=== PATIENT | female | born 1985 | race African-American/Black ===

== ENCOUNTER 2019-03-22 06:34 | Outpatient (CLI) | payer BC ==
--- NOTE | 2019-03-22 10:50 | ULT ---
RIGHT AXILLARY ULTRASOUND: Date: 03/22/19 HISTORY: Newly diagnosed right breast cancer. Evaluation for axillary adenopathy. FINDINGS: Real-time imaging of the right axilla shows no suspicious lymph nodes or other abnormalities. IMPRESSION: Unremarkable ultrasound of the right axilla. POS: DAMON
== END 2019-03-22 06:35 | disposition home or self-care (01) ==
LOC: BICULT 06:34
PROVIDERS: ATTEND Internal Medicine Hematology & Oncology
DX: C50.211 Malignant neoplasm of upper-inner quadrant of right female breast (principal)
CPT/HCPCS: 76999

== ENCOUNTER 2019-03-23 08:36 | Day surgery (SDC) | payer BC ==
[2019-03-22 12:45] VITALS: BMI 27.8
[2019-03-23] MEDS ORDERED: Lidocaine 2% PF 5 ML VIAL ONE (10:53)
[2019-03-23] MEDS ORDERED: Bupivacaine/Epinephrine 0.25% 30 ML VIAL ONE (10:53)
[2019-03-23] MEDS ORDERED: Fentanyl 100 MCG/2 ML VIAL ONE (11:00)
[2019-03-23] MEDS ORDERED: Ondansetron PF 4 MG/2 ML Vial ONE (13:04)
[2019-03-23] MEDS ORDERED: PROPOFOL 200 MG/20 ML VIAL ONE (13:04)
[2019-03-23] MEDS ORDERED: Lidocaine 1% PF 5 ML VIAL ONE (13:04)
[2019-03-23] MEDS ORDERED: Dexamethasone 20 MG/5 ML VIAL ONE (13:04)
--- NOTE | 2019-03-23 14:53 | RAD ---
CHEST 1 VIEW: Date: 03/23/19 INDICATION: MediPort placement. FINDINGS: There is a left IJ chest wall port in place. No pneumothorax is evident. Heart size is normal. No acu te osseous abnormality is evident. IMPRESSION: Left IJ chest wall port. Tip of catheter projects in region of cavoatrial junction. No pneumothorax e vident. Findings called to Sheela PACU nurse caring for this patient, at 1256 hours on 03/23/19. CODE CR. POS: CET
--- NOTE | 2019-03-23 20:51 | OP ---
DATE OF PROCEDURE: 03/23/2019 PREOPERATIVE DIAGNOSIS: Right breast cancer. POSTOPERATIVE DIAGNOSIS: Right breast cancer. PROCEDURE PERFORMED: Tunneled central line subcutaneous port (MediPort CT injectable, low-profile). ANESTHESIA: General. ESTIMATED BLOOD LOSS: Minimal. COMPLICATIONS: None. SPECIMEN: None. FINDINGS: Tip of the catheter was at the atriocaval junction. DESCRIPTION OF PROCEDURE: The patient was taken to the operating room and laid supine on the operating room table. After general anesthetic was obtained, the bilateral neck and chest were prepped and draped in a sterile fashion. Local anesthetic was infiltrated into the left IJ vein. Internal jugular vein was cannulated using a 22-gauge finder needle followed by a Seldinger needle. Wire was passed into the superior vena cava under fluoro guidance. A small reina was made at the wire insertion site. A separate 3-cm incision was made in the left upper chest. Subcutaneous pocket was made below the lower incision. Tubing for the MediPort tunneled from the inferior to superior incision. Introducer sheath was placed over the wire into the superior vena cava under fluoro guidance. The dilator and wire were removed. The end of the catheter was sewn into the sheath. The sheath was peeled away. The tip of the catheter was at the atriocaval junction. The MediPort tubing was cut to fit the MediPort at lower incision, connected to the MediPort. The MediPort was sewn to the chest wall in the subcutaneous pocket using Prolene. The MediPort was flushed and pennie blood without difficulty. It was flushed with a heparin flush. All incisions were irrigated and closed using 3-0 Vicryl, 4-0 Monocryl, and Dermabond. The patient was sent to Recovery in stable condition. All instrument counts, needle counts, and lap counts were correct. Job ID: [id number]
== END 2019-03-23 13:38 | disposition home or self-care (01) ==
LOC: SDC 08:36
PROVIDERS: ATTEND Surgery
PROC: 02HV33Z Insertion of Infusion Device into Superior Vena Cava, Percutaneous Approach (ICD-10-PCS; principal; 2019-03-23)
DX: C50.911 Malignant neoplasm of unspecified site of right female breast (principal); Z98.890 Other specified postprocedural states
CPT/HCPCS: 71045; C1788; J0690; J1100; J1642; J2001; J2405; J2704; J3010

== ENCOUNTER 2019-03-24 13:04 | Outpatient (CLI) | payer BC ==
--- NOTE | 2019-03-24 13:57 | CT ---
CT Chest Abd Pelvis W Con HISTORY: Newly diagnosed right breast cancer, invasive ductal carcinoma grade 3. This exam is done fo r staging. COMPARISON: None. FINDINGS: The lungs are clear of any infiltrative process versus linear atelectasis in the right base . There are no pulmonary nodules identified. There is no significant mediastinal, hilar or axillary adenopathy seen. Right breast lesion is seen i n the inner portion of the right breast. CT of abdomen performed with contrast: The liver, spleen, pancreas and gallbladder regions are normal . Right and left adrenal glands and right and left kidneys are normal in size. There are small left per iaortic lymph node slightly more numerous than typically seen but nonenlarged, the largest nodule is at the level the bifurcation it measures 6 7 mm. No significant mesenteric adenopathy. No bowel wa ll findings. CT of pelvis performed with intravenous contrast enhancement: The appendix is retrocecal in location and normal in appearance. Follicles are seen involving the left adnexa, the right adnexa more difficult to visualize but I believe appears unremarkable. Directly adjacent to the right ovary is a low-attenuation mass which is felt to be of ovarian origin. It has CT Hounsfield unit numbers that are higher than a cyst, it measures approximately 4.6 cm in size. This does not have the typical appe arance of a fibroid although it could represent a degenerated fibroid. Further investigation of this with pelvic ultrasound is recommended. Review of osseous structures show no lytic or blastic bony change. IMPRESSION: 1. No evidence for metastatic disease. 2. Right breast mass. 3. 4.6 cm low-attenuation mass which is felt to arise from the right side of the uterus, it is very c lose to the right adnexa but not felt to be of adnexal origin. It does not have a typical appearance of a fibroid although this would still be considered the main possibility, I would recomme nd pelvic ultrasound for better characterization
== END 2019-03-24 13:05 | disposition home or self-care (01) ==
LOC: CT 13:04
PROVIDERS: ATTEND Internal Medicine Hematology & Oncology
DX: Z51.11 Encounter for antineoplastic chemotherapy (principal); C50.211 Malignant neoplasm of upper-inner quadrant of right female breast; N63.10 Unspecified lump in the right breast, unspecified quadrant; N85.8 Other specified noninflammatory disorders of uterus; I08.1 Rheumatic disorders of both mitral and tricuspid valves; Z79.899 Other long term (current) drug therapy
CPT/HCPCS: 71260; 74177; 93306

== ENCOUNTER 2019-04-05 10:30 | Outpatient (CLI) | payer BC ==
--- NOTE | 2019-04-05 14:44 | NM ---
Whole body bone scan: 04/05/2019 COMPARISON: None HISTORY: Breast cancer TECHNIQUE: 3 hours following the intravenous administration of 32.4 mCi technetium 99m labeled MDP, a nterior and posterior whole-body imaging is obtained. FINDINGS: There is physiologic radiotracer activity within the kidneys and urinary bladder. No foci o f increased radiotracer activity seen to suggest osseous metastatic disease in the region of the calvarium, spine, pelvis, ribs, or long bones. There is a focus of increased radiotracer activity which overlies the midline mandible on frontal agustin ging suggesting dental uptake. IMPRESSION: No scintigraphic evidence of osseous metastatic disease.
== END 2019-04-05 10:31 | disposition home or self-care (01) ==
LOC: NM 10:30
PROVIDERS: ATTEND Internal Medicine Hematology & Oncology
DX: C50.211 Malignant neoplasm of upper-inner quadrant of right female breast (principal)
CPT/HCPCS: 78306; A9503